=== PATIENT | female | born 1945 | race Caucasian/White ===

== ENCOUNTER 2018-02-23 12:58 | Emergency (ER) | payer MEDICARE ==
[~2018-02-23] VITALS: Ht 160 cm; Wt 84.1 kg
[2018-02-23] MEDS ORDERED: ASPI-989 PO (13:07)
[2018-02-23] MEDS ORDERED: RIVAROXABAN 15 MG TABLET PO ONE (16:15)
[2018-02-23 16:19] VITALS: BP 136/80
== END 2018-02-23 17:24 | disposition home or self-care (01) ==
LOC: EMS 13:00
DX: I82.402 Acute embolism and thrombosis of unspecified deep veins of left lower extremity (principal); Z90.710 Acquired absence of both cervix and uterus; Z79.82 Long term (current) use of aspirin; Z88.1 Allergy status to other antibiotic agents; Z88.8 Allergy status to other drugs, medicaments and biological substances; Z79.01 Long term (current) use of anticoagulants
CPT/HCPCS: 93971